=== PATIENT | male | born 1970 | race Caucasian/White ===

== ENCOUNTER 2017-05-31 11:10 | Emergency (ER) | payer MEDICARE, OTHER ==
[2017-05-31 12:31] LABS: HEMOGLOBIN 15.3 g/dL (13.5-17.5); LYMPHOCYTES 25.6 % (15-50); MCH 29.7 pg (26.0-34.0); MCV 87.4 fL (80.0-100.0); MEAN PLATELET VOLUME 10.4 fL (7.4-10.4); NEUTROPHILS 67.3 % (40-80); PLATELET COUNT 279 10x3/uL (130-400); RBC 5.15 10x6/uL (4.20-6.10); RDW 12.7 % (11.5-14.5); WBC 8.7 10x3/uL (4.8-10.8)
[2017-05-31 12:52] LABS: ALBUMIN 3.7 g/dL (3.4-5.0); ALKALINE PHOSPHATASE 79 U/L (46-116); ALT (SGPT) 44 U/L (10-68); BILIRUBIN - TOTAL 0.25 mg/dL (0.2-1.3); CALC OSMOLALITY 280 mosm/kg (275-300); CALCIUM 9.7 mg/dL (8.5-10.1); CARBON DIOXIDE 27.3 mmol/L (21.0-32.0); CHLORIDE - SERUM 102 mmol/L (98-107); CREATININE - SERUM 1.3 mg/dL (0.6-1.3); GLUCOSE 111 mg/dL (74-106); POTASSIUM - SERUM 3.6 mmol/L (3.5-5.1); PROTEIN - SERUM 7.5 g/dL (6.4-8.2); SODIUM 139 mmol/L (136-145); UREA NITROGEN 19 mg/dL (7-18); eGFR NON AFRICAN AMERICAN 64 mL/min (90-120)
[2017-05-31 13:02] LABS: CHOL - HDL RATIO 5.3 ratio (2.3-4.9); CHOLESTEROL, TOTAL 185 mg/dL (0-200); CKMB 2.1 U/L (0.0-3.6); CREATINE KINASE 94 UL (21-232); HDL CHOLESTEROL 35 mg/dL (32-96); LDL CHOLESTEROL 133 mg/dL (0-100); LDL-HDL RATIO 3.8 ratio (1.5-3.5); TRIGLYCERIDE 88 mg/dL (30-200)
[2017-05-31 13:04] LABS: TROPONIN-I < 0.017 ng/mL (0.000-0.060)
== END 2017-05-31 14:00 | disposition home or self-care (01) ==
LOC: D.ER 11:10
PROVIDERS: Nurse Practitioner Family
DX: J06.9 Acute upper respiratory infection, unspecified (principal); R07.89 Other chest pain

== ENCOUNTER 2018-05-17 06:04 | Day surgery (SDC) | payer MEDICARE, OTHER ==
[~2018-05-17] VITALS: Ht 165.1 cm; Wt 143.2 kg
[2018-05-17 06:42] LABS: HEMATOCRIT 44.2 % (42.0-54.0); HEMOGLOBIN 14.7 g/dL (13.5-17.5); MCH 29.8 pg (26.0-34.0); MCHC 33.3 g/dL (31.0-37.0); MCV 89.5 fL (80.0-100.0); MEAN PLATELET VOLUME 10.3 fL (7.4-10.4); RBC 4.94 10x6/uL (4.20-6.10); RDW 13.5 % (11.5-14.5); WBC 9.6 10x3/uL (4.8-10.8)
[2018-05-17] MEDS ORDERED: NORVASC10 MG PO (07:18)
[2018-05-17] MEDS ORDERED: LIPITOR40 MG PO (07:18)
[2018-05-17] MEDS ORDERED: CHLORTHALIDONE25 MG PO (07:19)
[2018-05-17] MEDS ORDERED: CARDURA4 MG PO (07:19)
[2018-05-17] MEDS ORDERED: PRINIVIL20 MG (07:20)
[2018-05-17] MEDS ORDERED: NEURONTIN 300300 MG PO (07:20)
[2018-05-17 07:21] VITALS: BP 112/54; Ht 165.1 cm; Wt 143.2 kg
[2018-05-17] MEDS ORDERED: PROTONIX40 MG PO (07:21)
--- NOTE | 2018-05-22 15:47 | OP ---
PATIENT NAME: GUERITA TODD MEDICAL RECORD: [id number] :74 LOCATION:[facility] ADMISSION DATE: SURGEON: FEDERICO GAITAN DO DATE OF OPERATION: 05/17/2018 PROCEDURE: Colonoscopy with polypectomy and biopsies as well as stool collection. INDICATIONS FOR PROCEDURE: Family history positive for colon cancer in the patient's father, diarrhea, cramping abdominal pain. SCOPE: Olympus video pediatric colonoscope. MEDICATIONS: Propofol IV per anesthesia. ESTIMATED BLOOD LOSS: Minimal. COMPLICATIONS: None. WITHDRAWAL TIME: 13 minutes. FINDINGS: Informed consent was given. The patient was made comfortable with the above medication. After reaching an adequate level of sedation by slow IV push, the patient was placed on his left side. A digital rectal examination was performed and was normal. The endoscope was then advanced under direct visualization through the rectum to the terminal ileum. The endoscope was slowly withdrawn and mucosa was carefully examined. The prep quality was inadequate for a complete examination of the colon. There were areas within the colon where there was a significant amount of liquid and solid stool making removal for visualization impossible. There was a single polyp visualized on today's examination. It was a benign-appearing sessile polyp located in the ascending colon. It measured approximately 5 mm in diameter. It was removed using a hot snare in 1 piece and completely retrieved. The mucosa throughout the terminal ileum and colon appeared normal. There were some scattered diverticula of moderate severity throughout the entire colon with the largest focus in the ascending colon. Retroflexion was performed in the rectum with visualization of grade I internal hemorrhoids without active bleeding. During the examination, random biopsies were taken to rule out the presence of microscopic colitis. Stool was also collected to submit for an xTAG to rule out any infectious reasons for diarrhea. The endoscope was withdrawn from the patient. The patient tolerated the procedure well, and there were no complications. IMPRESSION: 1. A single benign-appearing polyp removed from the ascending colon. 2. Moderate diverticulosis of the entire colon. 3. Grade I internal hemorrhoids without bleeding. 4. Otherwise normal colonoscopy. Random biopsies taken and stool collected for further studies. PLAN AND RECOMMENDATIONS: 1. Discharge home when recovery parameters are met. 2. Follow up biopsy specimen results. 3. High fiber diet. 4. Continue current medications. OPERATIVE REPORT [id number] GUERITA TODD 5. Trial of dicyclomine 20 mg p.o. t.i.d. p.r.n. abdominal pain and cramping or loose stools while awaiting biopsies. 6. Recall colonoscopy in 1 year due to the inadequate prep on today's exam. TRANSINT:[id number] Voice Confirmation ID: [id number] DOCUMENT ID: [id number] FEDERICO GAITAN DO at 1547 CC: [id number] DICTATION DATE: 05/17/18 0856 SKYDIVING INSTRUCTOR: 05/17/18 1139 [facility] 05/17/18 [place] [id number] [place] [address]
== END 2018-05-17 09:40 | disposition home or self-care (01) ==
LOC: D.OPS 06:04
PROVIDERS: Anesthesiology
DX: K63.5 Polyp of colon (principal); K57.30 Diverticulosis of large intestine without perforation or abscess without bleeding; K64.0 First degree hemorrhoids; Z80.0 Family history of malignant neoplasm of digestive organs; Z01.812 Encounter for preprocedural laboratory examination

== ENCOUNTER → 2018-05-31 10:28 | Day surgery (SDC) | payer MEDICARE, OTHER ==
[~2018-05-31] VITALS: Ht 165.1 cm; Wt 143.2 kg
[~2018-05-31 10:28] MED LIST: CARDURA4 MG PO; CHLORTHALIDONE25 MG PO; LIPITOR40 MG PO; NEURONTIN 300300 MG PO; NORVASC10 MG PO; PRINIVIL20 MG; PROTONIX40 MG PO
[2018-05-31 11:36] VITALS: BP 135/87; Ht 165.1 cm; Wt 143.2 kg
[2018-05-31 12:28] LABS: BASOPHILS 0.2 % (0-2); EOSINOPHILS 3.7 % (0-7); HEMATOCRIT 46.1 % (42.0-54.0); HEMOGLOBIN 15.3 g/dL (13.5-17.5); IMMATURE GRANULOCYTES 0.1 % (0-5); LYMPHOCYTES 25.3 % (15-50); MCH 29.4 pg (26.0-34.0); MCHC 33.2 g/dL (31.0-37.0); MCV 88.5 fL (80.0-100.0); MEAN PLATELET VOLUME 10.9 fL (7.4-10.4); MONOCYTES 6.2 % (2-11); NEUTROPHILS 64.5 % (40-80); PLATELET COUNT 285 10x3/uL (130-400); RBC 5.21 10x6/uL (4.20-6.10); RDW 13.4 % (11.5-14.5); WBC 10.1 10x3/uL (4.8-10.8)
--- NOTE | 2018-06-04 16:48 | OP ---
PATIENT NAME: GUERITA TODD MEDICAL RECORD: [id number] :74 LOCATION:[facility] ADMISSION DATE: SURGEON: FEDERICO GAITAN DO DATE OF OPERATION: 05/31/2018 PROCEDURE: EGD with biopsies. INDICATIONS FOR PROCEDURE: GERD, diarrhea, cramping pain. SCOPE: Olympus video gastroscope. MEDICATIONS: Propofol 220 mg IV per anesthesia. ESTIMATED BLOOD LOSS: Minimal. COMPLICATIONS: None. FINDINGS AND DESCRIPTION OF PROCEDURE: Informed consent was given. The patient was made comfortable with the above medication. After reaching an adequate level of sedation by slow IV push, the patient was placed on his left side. The endoscope was advanced under direct visualization through the mouth to the second portion of the duodenum. In the hypopharynx, there was a benign appearing polyp on the left side, which was imaged. The endoscope was advanced beyond the hypopharynx and the upper esophageal sphincter into the esophagus. The upper, middle, and lower thirds of the esophagus appeared normal. At the GE junction, there was mild evidence of LA class A reflux-induced esophagitis. The endoscope was advanced beyond the GE junction into the stomach and retroflexed to view the cardia, where a small sliding hiatal hernia was present. The mucosa throughout the entire stomach including the fundus, cardia, antrum, and prepyloric regions appeared normal. Random cold forceps biopsies were taken from the antrum to rule out the presence of H. pylori and to submit for histopathology. The endoscope was advanced beyond the pylorus into the duodenum. In the duodenal bulb, there was a small polypoid lesion, which was biopsied. The endoscope was advanced beyond the bulb into the second portion, which appeared normal. Random cold forceps biopsies were taken to submit for histopathology. The endoscope was then withdrawn from the patient. The patient tolerated the procedure well and there were no complications. IMPRESSION: 1. A single polyp located on the mucosa of the left hypopharynx. 2. LA class A reflux-induced esophagitis. 3. Small sliding hiatal hernia. 4. Duodenal bulb polypoid lesion, which was biopsied. PLAN AND RECOMMENDATIONS: 1. Discharge home when recovery parameters are met. 2. Follow up biopsy specimen results. 3. Continue current diet and reflux precautions. 4. Continue current medications. 5. Consider ENT referral for evaluation of polyp in the hypopharynx. 6. Consider general surgical referral regarding the hiatal hernia and reflux. TRANSINT:[id number] Voice Confirmation ID: [id number] DOCUMENT ID: [id number] OPERATIVE REPORT [id number] GUERITA OTDD NATHAN A DO at 1648 CC: [id number] DICTATION DATE: 05/31/18 1414 COTTON OPENER: 05/31/18 1600 [facility] 05/31/18 [place] [id number]
== END | disposition home or self-care (01) ==
LOC: D.OPS 10:28
PROVIDERS: Anesthesiology
DX: K21.9 Gastro-esophageal reflux disease without esophagitis (principal); R19.7 Diarrhea, unspecified; R10.9 Unspecified abdominal pain

== ENCOUNTER → 2018-06-06 12:29 | Outpatient (CLI) | payer MEDICARE, OTHER ==
[2018-05-31 11:36] VITALS: BMI 52.5
[2018-06-06 13:52] LABS: BASOPHILS 0.2 % (0-2); EOSINOPHILS 1.7 % (0-7); HEMATOCRIT 47.6 % (42.0-54.0); IMMATURE GRANULOCYTES 0.1 % (0-5); LYMPHOCYTES 16.2 % (15-50); MCH 29.6 pg (26.0-34.0); MCHC 33.6 g/dL (31.0-37.0); MEAN PLATELET VOLUME 10.2 fL (7.4-10.4); MONOCYTES 7.3 % (2-11); NEUTROPHILS 74.5 % (40-80); PLATELET COUNT 290 10x3/uL (130-400); RBC 5.41 10x6/uL (4.20-6.10); RDW 13.3 % (11.5-14.5); WBC 13.3 10x3/uL (4.8-10.8)
[2018-06-06 14:10] LABS: ALBUMIN 4.1 g/dL (3.4-5.0); ANION GAP 14.1 mmol/L (8-16); BILIRUBIN - TOTAL 0.65 mg/dL (0.2-1.3); CALCIUM 9.6 mg/dL (8.5-10.1); CARBON DIOXIDE 28.5 mmol/L (21.0-32.0); CREATININE - SERUM 1.6 mg/dL (0.6-1.3)
[2018-06-06 14:15] LABS: POTASSIUM - SERUM 2.6 mmol/L (3.5-5.1)
== END | disposition home or self-care (01) ==
LOC: D.LAB 12:29
PROVIDERS: Internal Medicine Gastroenterology
DX: R11.2 Nausea with vomiting, unspecified (principal); R19.7 Diarrhea, unspecified; R10.12 Left upper quadrant pain

== ENCOUNTER → 2018-06-09 08:12 | Outpatient (CLI) | payer MEDICARE, OTHER ==
[2018-05-31 11:36] VITALS: BMI 52.5
== END | disposition home or self-care (01) ==
LOC: D.CT 08:00
DX: R11.2 Nausea with vomiting, unspecified (principal); R19.7 Diarrhea, unspecified; R10.12 Left upper quadrant pain